=== PATIENT | male | born 1965 | race Caucasian/White ===

== ENCOUNTER 2018-04-03 19:39 | Inpatient (IN) ==
[2018-04-03] MEDS ORDERED: Naloxone 0.4 MG/ML INJ IVP PRN (21:58)
[2018-04-03] MEDS ORDERED: Acetaminophen 325 MG TABLET PO PRN (21:58)
[2018-04-03] MEDS ORDERED: Albuterol 2.5 MG/3 ML NEBULIZER IH PRN (22:06)
[2018-04-03] MEDS ORDERED: *HR* LORazepam 2 MG/ML VIAL IVP PRN (22:15)
--- NOTE | 2018-04-03 22:17 | Internal Med History&Physical ---
Date of Encounter: 04/03/18 Time of Encounter: 21:30 Internal Medicine - H&P: HPI Chief complaint: weka, lightheaded Admitted From: Hospital to Hospital Transfer Plans for Post Hospital Care: Home History of present illness: Mr. Savage is a 53 year old male who presents in transfer from [facility] Emergency Department for concerns of critical hyponatremia. He lives in a alf for treatment of his underlying psychiatric disorder -- bipolar disorder and schizoaffective disorder. He complained of having a headache and feeling lightheaded and dizzy earlier today. He was sent by the staff of the alf to ER where he was seen and evaluated. He had routine labs performed which revealed a critical sodium level of 112 and potassium level 3.1. He was given some IV fluids at the ER and oral potassium replacement. A request was then made to transfer patient to [facility] for further workup and care. Upon my assessment of the patient once he arrived, patient feels well without complaints. He denies any further throbbing headache or lightheadedness or dizziness. He appears to be euvolemic. He denies any profuse vomiting, diarrhea, or any excessive volume loss. He denies any excessive water intake or fluid intake. He denies any fevers, chills, or night sweats. Overall, he feels relatively well other than some generalized weakness. I reviewed old records and old labs. He tends to have a chronic hyponatremia with a serum sodium level running between 120-129. Based upon his history and medication review, I suspect the hyponatremia to be secondary to his oxcarbazepine. I called and reviewed his medication with pharmacy. I also worry about psychogenic polydipsia given his underlying psychiatric disorder. However, he denies any excessive fluid intake. Nonetheless, I will place him on a 2000 later per day fluid restriction, hold his oxcarbazepine, monitor sodium levels closely. Additionally, I called and spoke with nephrology tonight seeking assistance and consultation from them in the morning. Past Med Surg Social Fam HX - Past Medical History Attestation: Yes The following information was validated with the patient. Source: patient, old records reviewed, other ([facility] ER records) Medical history: hypertension, other Additional medical history: LUMBAR DDD, BACK FX WITH INTERNAL FIXATION, DIVERTICULITIS. Psychiatric history: anxiety, bipolar, schizophrenia - Past Surgical History Surgical History: orthopedic, other (spine surgery) Additional surgical history: BACK SURGERY - Social History Smoking Status: Current every day smoker Smokeless Tobacco Status: No Alcohol use: none Drug use: none Occupational status: unemployed Current living situation: Correction Activity Level: Independent ambulation Recent Out of Country Travel Within the Last 8 Weeks: No - Family History Mother Hx Family Cardiac Disorders: No Hx Family Endocrine Disorder: Yes (diabetes) Internal Medicine - H&P: Meds Albuterol Neb [Proventil Neb] 1 aerosol IH Q4H PRN 04/03/18 [History] Albuterol Sulfate [Ventolin Hfa] 2 puff IH BID 04/03/18 [History] Atorvastatin Calcium [Lipitor] 20 mg PO DAILY 04/03/18 [History] Cholecalciferol (Vitamin D3) [Vitamin D] 2 cap PO DAILY 04/03/18 [History] Docusate Sodium [Move It Along] 100 mg PO BID PRN 04/03/18 [History] Dutasteride [Avodart] 0.5 mg PO DAILY 04/03/18 [History] Fluticasone Propionate Nasal [Flonase] 2 inh IN DAILY 04/03/18 [History] Haloperidol 10 mg PO BID 04/03/18 [History] Ibuprofen [Ibu] 800 mg PO BID 04/03/18 [History] Lisinopril [Zestril] 20 mg PO DAILY 04/03/18 [History] Loratadine [Allergy Relief] 10 mg PO DAILY 04/03/18 [History] Melatonin [Melatin] 3 mg PO HS PRN 04/03/18 [History] Metoprolol Tartrate [Lopressor] 50 mg PO BID 04/03/18 [History] Multivits,Ca,Min/Iron/FA/Lycop [Centrum Men's Tablet] 1 tab PO DAILY 04/03/18 [ History] OXcarbazepine [Oxcarbazepine] 300 mg PO TID 04/03/18 [History] OXcarbazepine [Oxcarbazepine] 600 mg PO TID 04/03/18 [History] Omeprazole [PriLOSEC] 20 mg PO DAILY 04/03/18 [History] Promethazine [Phenergan] 25 mg PO Q6HR PRN 04/03/18 [History] Sodium Chloride/Sodium Bicarb [Nasa Mist Saline [place]] 1 spray IN BID 04/03/18 [ History] Tamsulosin HCl [Flomax] 0.4 mg PO DAILY 04/03/18 [History] Tramadol HCl [Ultram] 100 mg PO TID 04/03/18 [History] Valacyclovir HCl 1,000 mg PO AD PRN 04/03/18 [History] amLODIPine [Norvasc] 10 mg PO DAILY 04/03/18 [History] 3 Allergy/AdvReac Type Severity Reaction Status Date / Time No Known Allergies Allergy Verified 04/20/17 16:36 - Constitutional Constitutional: weakness, weight loss (intentional ), no anorexia, no chills, no fever(s), no night sweats - EENT Eyes: no blurry vision, no change in vision Ears: no ear pain, no tinnitus Nose, mouth and throat: no nasal congestion, no nasal discharge, no sinus pressure, no sore throat - Cardiovascular Cardiovascular ROS IM: lightheadedness, no chest pain, no dyspnea, no dyspnea on exertion, no edema, no palpitations, no paroxysmal nocturnal dyspnea, no syncope - Respiratory Respiratory: wheezing (rarely), no cough, no dyspnea, no hemoptysis, no chest congestion, no excessive phlegm production, no change in phlegm color - Gastrointestinal Gastrointestinal: heartburn, no abdominal pain, no diarrhea, no early satiety, no hematemesis, no hematochezia, no melena, no vomiting - Genitourinary Genitourinary ROS male: no dysuria, no flank pain, no hematuria - Musculoskeletal Musculoskeletal ROS IM: arthralgias, back pain - Integumentary Integumentary IM: no rash, no jaundice - Neurological Neurological ROS: dizziness, headache(s) (throbbing posterior headache today), no confusion, no focal weakness, no frequent falls, no paresthesias, no vertigo - Psychiatric Psychiatric: no anxiety, no depression - Endocrine Endocrine IM: no cold intolerance, no heat intolerance, no polydipsia, no polyphagia, no polyuria - Hematologic/Lymphatic Hematologic/Lymphatic: no lymphadenopathy - Allergic/Immunologic Allergic/Immunologic: wheezing, no GI upset with certain foods - Constitutional General appearance: Present: cooperative, A&O X 3, pleasant, no acute distress, answers questions appropriately Exam: appears euvolemic - Head Head exam: Present: atraumatic, normal inspection - Eye Eye exam: Present: EOMI, PERRL. Absent: scleral icterus Pupils: Present: normal accommodation - ENT ENT exam: Present: mucous membranes moist, normal exam, normal oropharynx - Neck Neck exam general surgery: Present: full ROM, supple, trachea midline. Absent: lymphadenopathy, tenderness, nuchal rigidity, thyromegaly - Respiratory Respiratory exam: Present: CTAB. Absent: chest wall tenderness, rales, respiratory distress, rhonchi, wheezes - Cardiovascular Cardiovascular exam: Present: bradycardia (HR 50's), RRR, +S1, +S2. Absent: diastolic murmur, systolic murmur - GI/Abdominal GI/Abdominal exam: Present: normal bowel sounds, soft. Absent: guarding, hepatomegaly, mass, rebound, splenomegaly, tenderness - Extremities Exam Extremities exam: Present: full ROM, normal capillary refill, warm, radial pulses palpable and symmetrical. Absent: calf tenderness, joint swelling, pedal edema, tenderness - Back Exam Back exam: Absent: CVA tenderness (L), CVA tenderness (R), tenderness - Neurological Exam Neurological exam: Present: alert, CN II-XII intact, oriented X3, no focal deficits, strengths equal and symetr throughout - Psychiatric Psychiatric exam: Present: normal affect, normal mood. Absent: agitated, anxious - Skin Skin exam: Present: dry, intact, warm Internal Med - H&P Results - Labs Labs: I reviewed his labs from [facility] and they include the following: WBC 4.1 Hemoglobin 14.6 Hematocrit 37.5 Platelet count 183 Sodium 112 Potassium 3.1 Chloride 77 Carbon Dioxide 26 BUN 7 Creatinine 0.7 Glucose 113 Calculated osmolality 233 EKG personally reviewed: Sinus bradycardia with no acute ST changes. - EKG Data -: EKG Interpreted by Myself EKG shows normal: sinus rhythm Rate: bradycardia - EKG Data Prior EKG available for review: no - Diagnostic Studies Chest x-ray Status: image reviewed by me (negative) - Assessment and plan (1) Hyponatremia Current Visit: Yes Status: Acute Assessment and plan: 1. Will repeat STAT chemistries and monitor levels Q4 hours. 2. Will place on regular diet and fluid restrict at 2000 ml fluid per day. 3. Patient denies any history of excessive fluid intake; however, given his underlying psychiatric history, need to monitor and restrict his fluid intake - - discussed with MAICO. 4. I called and spoke with Dr. Soria seeking advice and consultation. Will monitor frequent chemistries, order TSH, serum uric acid level, and ACTH stim test in the morning. Dr. Soria's advice and assistance much appreciated. 5. Will place in seizure precautions. (2) Headache Current Visit: Yes Status: Acute Assessment and plan: 1. Will order STAT Head CT given throbbing nature and critical hyponatremia. 2. Monitor closely. 3. Patient reports headache has resolved. Qualifiers: Headache type: unspecified Headache chronicity pattern: acute headache Intractability: not intractable Qualified Code(s): R51 - Headache (3) Psychiatric disorder Current Visit: Yes Status: Chronic Assessment and plan: 1. Hold Oxcarbezepine while monitoring sodium levels. 2. Will likely need psychiatry consult for assistance medication management. (4) Weakness Current Visit: Yes Status: Acute Assessment and plan: 1. Likely due to hyponatremia and hypokalemia. 2. Monitor electrolytes closely. 3. Will check TSH and ACTH stim test as above. (5) DVT prophylaxis Current Visit: Yes Status: Acute Assessment and plan: 1. Heparin SQ.
[2018-04-03 22:47] LABS: Alanine Aminotransferase 18 Units/L (7-52); Albumin 4.2 g/dL (3.5-5.7); Alkaline Phosphatase 77 Units/L (34-104); Aspartate Amino Transferase 20 Units/L (13-39); BUN/Creatinine Ratio 12 (6-26); Bilirubin,Total 0.5 mg/dL (0.3-1.0); Blood Urea Nitrogen 7 mg/dL (6-20); Calcium 8.8 mg/dL (8.6-10.3); Carbon Dioxide 30 mEq/L (23-29); Chloride 85 mEq/L (98-107); Globulin 2.1 g/dL (2.4-3.5); Glucose 81 mg/dL (70-105); Osmolality,Calculated 247 (280-300); Potassium 3.5 mEq/L (3.5-5.1); Sodium 120 mEq/L (136-145); Total Protein 6.3 g/dL (6.4-8.9); eGFR For Non-African Americans > 60 (> 60)
[2018-04-04 02:06] LABS: BUN/Creatinine Ratio 15 (6-26); Blood Urea Nitrogen 8 mg/dL (6-20); Calcium 8.4 mg/dL (8.6-10.3); Carbon Dioxide 26 mEq/L (23-29); Chloride 87 mEq/L (98-107); Glucose 94 mg/dL (70-105); Osmolality,Calculated 246 (280-300); Potassium 4.2 mEq/L (3.5-5.1); eGFR For Non-African Americans > 60 (> 60)
[2018-04-04] MEDS ORDERED: traMADol 50 MG TABLET PO PRN (04:15)
[2018-04-04] MEDS: *HR* Heparin 5,000 UNIT/ML VIAL SQ SCH ×2 (04:30→17:57)
[2018-04-04 05:17] LABS: Mean Platelet Volume 8.8 fL (9.4-12.4)
[2018-04-04 05:18] LABS: Eosinophils # 0.2 K/mcL (0.0-0.6); Hematocrit 39.9 % (37.5-50.1); Hemoglobin 14.5 g/dL (12.9-16.9); Mean Corpuscular HGB Conc 36.3 g/dL (31.6-35.5); Mean Corpuscular Hemoglobin 33.3 pg (28.0-33.3); Mean Corpuscular Volume 91.7 fL (83.0-100.0); Platelet Count 194 K/mcL (140-400); Red Blood Count 4.35 M/mcL (4.19-5.50); Red Cell Distribution Width 11.9 % (11.5-14.5)
[2018-04-04 05:38] LABS: BUN/Creatinine Ratio 15 (6-26); Blood Urea Nitrogen 8 mg/dL (6-20); Carbon Dioxide 27 mEq/L (23-29); Chloride 90 mEq/L (98-107); Glucose 103 mg/dL (70-105); Magnesium 1.7 mg/dL (1.6-2.6); Osmolality,Calculated 253 (280-300); Potassium 3.8 mEq/L (3.5-5.1); Sodium 122 mEq/L (136-145); Uric Acid 1.8 mg/dL (2.3-7.6); eGFR For Non-African Americans > 60 (> 60)
[2018-04-04 05:39] LABS: Troponin I < 0.03 ng/mL (< 0.04)
[2018-04-04 05:42] LABS: Lymphocytes # 0.9 K/mcL (0.6-4.6); Monocytes # 0.5 K/mcL (0.0-1.3); Platelet Estimate Normal (Normal); Reactive Lymphocytes Present (Not Present); Toxic Granulation Present (Not Present)
[2018-04-04 05:43] LABS: Acanthocytes 1+ (Not Present); Large Platelets Present (Not Present); Macrocytosis Present (Not Present); Poikilocytosis 2+ (Not Present)
[2018-04-04 05:52] LABS: Thyroid Stimulating Hormone 2.036 mcIU/mL (0.340-5.600)
[2018-04-04 06:29] LABS: Sodium 119 mEq/L (136-145)
[2018-04-04] MEDS ORDERED: Cosyntropin 250 MCG/2 ML VIAL IVP ONE (08:00)
[2018-04-04 09:42] LABS: BUN/Creatinine Ratio 11 (6-26); Blood Urea Nitrogen 7 mg/dL (6-20); Calcium 9.3 mg/dL (8.6-10.3); Carbon Dioxide 30 mEq/L (23-29); Chloride 92 mEq/L (98-107); Glucose 162 mg/dL (70-105); Osmolality,Calculated 264 (280-300); Potassium 3.7 mEq/L (3.5-5.1); Sodium 126 mEq/L (136-145); eGFR For Non-African Americans > 60 (> 60)
--- NOTE | 2018-04-04 10:26 | Internal Med Progress Note ---
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 HEENT: Moist oral mucosa, not cyanotic, sclerae is anicteric, conjunctiva is pink. Neuro: Alert and awake and oriented X3 ,speech is normal, no facial paralysis, no focal weakness. Chest: No bruising, no chest wall tenderness, equal chest movement bilaterally. Respiratory: CTAB Heart: S1, S2, regular rate and rhythm at this time. No murmurs. Abdomen:soft, non-tender, no palpably enlarged organs, bowel sounds present in all quadrants. 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 (5) DVT prophylaxis Current Visit: Yes Status: Acute Assessment and Plan: SQ heparin - Time Spent with Patient Total time spent is greater than 50% in coordination of care (as documented) at patient's floor/unit and/or counseling patient: Plan of Care Discussed with: patient Internal Medicine: Result - Labs CBC & Chem 7: 04/04/18 04:56 04/04/18 09:04 Labs: Short CBC 04/04/18 Range/Units 04:56 WBC 4.6 (4.3-11.1) K/mcL Hgb 14.5 (12.9-16.9) g/dL Hct 39.9 (37.5-50.1) % Plt Count 194 (140-400) K/mcL Neutrophils # 3.0 (1.6-8.9) K/mcL BMP 04/03/18 04/04/18 04/04/18 22:15 01:23 04:56 Sodium 120 L* 119 L* 122 L Potassium 3.5 4.2 3.8 Chloride 85 L 87 L 90 L Carbon Dioxide 30 H 26 27 BUN 7 8 8 Creatinine 0.57 L 0.52 L 0.53 L Glucose 81 94 103 Calcium 8.8 8.4 L 9.0 04/04/18 09:04 Sodium 126 L Potassium 3.7 Chloride 92 L Carbon Dioxide 30 H BUN 7 Creatinine 0.61 L Glucose 162 H Calcium 9.3 Cardiac Enzymes 04/03/18 04/04/18 Range/Units 22:15 04:56 Troponin I < 0.03 < 0.03 (< 0.04) ng/mL Liver Function 04/03/18 Range/Units 22:15 Total Bilirubin 0.5 (0.3-1.0) mg/dL AST 20 (13-39) Units/L ALT 18 (7-52) Units/L Alkaline Phosphatase 77 (34-104) Units/L Albumin 4.2 (3.5-5.7) g/dL - Impressions Impressions Head CT 04/03/18 21:58 IMPRESSION: No acute intracranial abnormality. D/ / Sheng Ribera / Sheng Ribera Interpreting Provider: Sheng Ribera Consult Discharge Plan - Plan Referrals: Flaquita Fung MD [Primary Care Provider] - (3) Headache Qualifiers: Qualified Code(s): R51 - Headache
[2018-04-04] MEDS: traMADol 50 MG TABLET PO PRN ×2 (12:17→19:18)
[2018-04-04] MEDS ORDERED: valACYclovir 500 MG TABLET PO PRN (13:50)
[2018-04-04] MEDS ORDERED: Melatonin 3 MG TABLET PO PRN (13:50)
--- NOTE | 2018-04-04 13:59 | Nephrology Consult Note ---
Date of Encounter: 04/04/18 Time of Encounter: 13:43 Assessment and Plan (1) Hyponatremia Current Visit: Yes Status: Acute Hyponatremia workup initiated. Initial was 112 is now 122. Salt tabs ordered. Regular diet to liberalize salt. Awaiting Serum Osmo results. Urine osmo 129 and urine Na is 15. (2) Headache Current Visit: Yes Status: Acute Per primary, Qualifiers: Headache type: unspecified Headache chronicity pattern: acute headache Intractability: not intractable Qualified Code(s): R51 - Headache (3) Psychiatric disorder Current Visit: Yes Status: Chronic Per primary. History of Present Illness - Reason for Consult Consult date: 04/04/18 hyponatremia - Chief Complaint weakness - History of Present Illness Mr. Britt is a 52 year old male admitted with hyponatremia. Appears chronic. Initial NA was 112, has now corrected to 126. Pt states he is overall feeling much bettter. PMH: anxiety, bipolar, schizophrenia. Pt denies CP and SOB. Denies nausea/vomiting/diarrhea. Per home mediations patient is taking 900 of Oxcarbazepine TID, which is known to cause hyponatremia. Serum and urine osmo and urine sodium all received without results. TSH, uric acid and cortisol noted. Sodium chloride tabls added. Pt lives in a nursing home but is wanting his own apartment. However the patient did admit that he might have trouble managing his medications on his own. Is a current every day smoker. Denies etoh or illicit drug use. Past Med Surg Social Fam HX - Past Medical History Medical history: hypertension, other Additional medical history: LUMBAR DDD, BACK FX WITH INTERNAL FIXATION, DIVERTICULITIS. Psychiatric history: anxiety, bipolar, schizophrenia - Past Surgical History Surgical History: orthopedic, other (spine surgery) Additional surgical history: BACK SURGERY - Social History Smoking Status: Current every day smoker Smokeless Tobacco Status: No Alcohol use: none Drug use: none - Family History Mother Hx Family Cardiac Disorders: No Hx Family Endocrine Disorder: Yes (diabetes) Medications and Allergies Albuterol Neb [Proventil Neb] 1 aerosol IH Q4H PRN 04/03/18 [History] Albuterol Sulfate [Ventolin Hfa] 2 puff IH BID 04/03/18 [History] Atorvastatin Calcium [Lipitor] 20 mg PO DAILY 04/03/18 [History] Cholecalciferol (Vitamin D3) [Vitamin D] 2 cap PO DAILY 04/03/18 [History] Docusate Sodium [Move It Along] 100 mg PO BID PRN 04/03/18 [History] Dutasteride [Avodart] 0.5 mg PO DAILY 04/03/18 [History] Fluticasone Propionate Nasal [Flonase] 2 inh IN DAILY 04/03/18 [History] Haloperidol 10 mg PO BID 04/03/18 [History] Ibuprofen [Ibu] 800 mg PO BID 04/03/18 [History] Lisinopril [Zestril] 20 mg PO DAILY 04/03/18 [History] Loratadine [Allergy Relief] 10 mg PO DAILY 04/03/18 [History] Melatonin [Melatin] 3 mg PO HS PRN 04/03/18 [History] Metoprolol Tartrate [Lopressor] 50 mg PO BID 04/03/18 [History] Multivits,Ca,Min/Iron/FA/Lycop [Centrum Men's Tablet] 1 tab PO DAILY 04/03/18 [ History] OXcarbazepine [Oxcarbazepine] 300 mg PO TID 04/03/18 [History] OXcarbazepine [Oxcarbazepine] 600 mg PO TID 04/03/18 [History] Omeprazole [PriLOSEC] 20 mg PO DAILY 04/03/18 [History] Promethazine [Phenergan] 25 mg PO Q6HR PRN 04/03/18 [History] Sodium Chloride/Sodium Bicarb [Nasa Mist Saline [place]] 1 spray IN BID 04/03/18 [ History] Tamsulosin HCl [Flomax] 0.4 mg PO DAILY 04/03/18 [History] Tramadol HCl [Ultram] 100 mg PO TID 04/03/18 [History] Valacyclovir HCl [Valtrex] 1,000 mg PO Q12H PRN 04/03/18 [History] amLODIPine [Norvasc] 10 mg PO DAILY 04/03/18 [History] Haloperidol [Haldol] 5 mg PO BID 04/04/18 [History] Montelukast [Singulair] 10 mg PO DAILY 04/04/18 [History] Trihexyphenidyl [Artane] 1 mg PO BID 04/04/18 [History] 3 Allergy/AdvReac Type Severity Reaction Status Date / Time No Known Allergies Allergy Verified 04/20/17 16:36 Review of Systems Constitutional: no chills, no fatigue, no fever(s) Nose, mouth and throat: dizziness Cardiovascular: no chest pain, no dyspnea Gastrointestinal: no diarrhea, no nausea, no vomiting Exam - Vital Signs Vital signs: Initial Vital Signs Temp Pulse Resp BP Pulse Ox 97.7 F 56 16 140/77 93 04/03/18 21:50 04/03/18 21:50 04/03/18 21:50 04/03/18 21:50 04/03/18 21:50 Vital Signs - Last 8 Hours Temp Pulse Resp BP Pulse Ox 04/04/18 11:26 98.8 F 61 18 155/95 94 04/04/18 07:29 98.1 F 57 18 147/84 95 Intake and Output 04/03/18 04/04/18 04/04/18 23:59 07:59 15:59 Intake Total 600 / 600 Output Total 1250 / 1250 520 / 520 Balance -1250 / -1250 80 / 80 Intake: Oral 600 / 600 Output: Urine 1250 / 1250 520 / 520 Other: Meal Lunch Percent of Meal Consumed 100% Weight 96.6 kg 97 kg Patient Weight 04/04/18 23:59 Weight 97 kg - General Appearance General appearance: well-developed, well-nourished EENT: ATNC, hearing intact, vision intact Neck: supple Respiratory: clear Cardiology: no edema, normal S1, normal S2 Gastrointestinal: normoactive bowel sounds, no tenderness, no guarding Integumentary: no rash, warm and dry Neurologic: alert and oriented x3 Psychiatric: mood/affect appropriate, cooperative Results - Lab Results 04/04/18 04:56 04/04/18 09:04 Most recent lab results Calcium 9.3 mg/dL (8.6-10.3) 04/04/18 09:04 Magnesium 1.7 mg/dL (1.6-2.6) 04/04/18 04:56 Consult Discharge Plan - Plan Referrals: Flaquita Fung MD [Primary Care Provider] -
[2018-04-04 14:05] LABS: BUN/Creatinine Ratio 13 (6-26); Blood Urea Nitrogen 8 mg/dL (6-20); Calcium 9.1 mg/dL (8.6-10.3); Carbon Dioxide 26 mEq/L (23-29); Chloride 91 mEq/L (98-107); Glucose 262 mg/dL (70-105); Osmolality,Calculated 265 (280-300); Potassium 3.7 mEq/L (3.5-5.1); Sodium 124 mEq/L (136-145); eGFR For Non-African Americans > 60 (> 60)
[2018-04-04] MEDS: Ibuprofen 800 MG TABLET PO SCH (15:41)
[2018-04-04] MEDS: amLODIPine 5 MG TABLET PO SCH (15:42)
[2018-04-04] MEDS: Finasteride 5 MG TABLET PO SCH (15:42)
[2018-04-04] MEDS: Cholecalciferol (D-3) 1,000 UNIT TABLET PO SCH (15:42)
[2018-04-04] MEDS: Lisinopril 20 MG TABLET PO SCH (15:42)
[2018-04-04] MEDS: OXcarbazepine 150 MG TABLET PO SCH ×4 (15:43→20:24)
[2018-04-04] MEDS: Saline Nasal Spray 44 ML BOTTLE NS SCH ×2 (15:43→20:25)
[2018-04-04 17:15] LABS: BUN/Creatinine Ratio 14 (6-26); Blood Urea Nitrogen 8 mg/dL (6-20); Calcium 9.2 mg/dL (8.6-10.3); Carbon Dioxide 30 mEq/L (23-29); Chloride 93 mEq/L (98-107); Glucose 88 mg/dL (70-105); Osmolality,Calculated 260 (280-300); Potassium 3.8 mEq/L (3.5-5.1); Sodium 126 mEq/L (136-145); eGFR For Non-African Americans > 60 (> 60)
[2018-04-04 21:23] LABS: BUN/Creatinine Ratio 15 (6-26); Blood Urea Nitrogen 8 mg/dL (6-20); Calcium 9.1 mg/dL (8.6-10.3); Carbon Dioxide 24 mEq/L (23-29); Chloride 94 mEq/L (98-107); Glucose 113 mg/dL (70-105); Osmolality,Calculated 259 (280-300); Potassium 3.6 mEq/L (3.5-5.1); Sodium 125 mEq/L (136-145); eGFR For Non-African Americans > 60 (> 60)
[2018-04-05 02:07] LABS: Basophils % 0.4 %; Eosinophils # 0.2 K/mcL (0.0-0.6); Eosinophils % 3.1 %; Hematocrit 40.6 % (37.5-50.1); Hemoglobin 14.7 g/dL (12.9-16.9); Immature Granulocytes % 0.2 % (0-4); Lymphocytes # 1.1 K/mcL (0.6-4.6); Lymphocytes % 20.5 %; Mean Corpuscular HGB Conc 36.2 g/dL (31.6-35.5); Mean Corpuscular Hemoglobin 33.7 pg (28.0-33.3); Mean Corpuscular Volume 93.1 fL (83.0-100.0); Mean Platelet Volume 8.9 fL (9.4-12.4); Monocytes # 0.9 K/mcL (0.0-1.3); Monocytes % 16.9 %; Neutrophils # 3.2 K/mcL (1.6-8.9); Platelet Count 207 K/mcL (140-400); Red Blood Count 4.36 M/mcL (4.19-5.50); Red Cell Distribution Width 12.4 % (11.5-14.5); Segmented Neutrophils % 58.9 %
[2018-04-05 02:16] LABS: BUN/Creatinine Ratio 13 (6-26); Blood Urea Nitrogen 6 mg/dL (6-20); Carbon Dioxide 25 mEq/L (23-29); Chloride 94 mEq/L (98-107); Glucose 97 mg/dL (70-105); Osmolality,Calculated 260 (280-300); Potassium 3.5 mEq/L (3.5-5.1); Sodium 126 mEq/L (136-145); eGFR For Non-African Americans > 60 (> 60)
[2018-04-05 05:41] LABS: BUN/Creatinine Ratio 12 (6-26); Blood Urea Nitrogen 6 mg/dL (6-20); Calcium 9.2 mg/dL (8.6-10.3); Carbon Dioxide 26 mEq/L (23-29); Chloride 94 mEq/L (98-107); Glucose 102 mg/dL (70-105); Osmolality,Calculated 260 (280-300); Potassium 3.7 mEq/L (3.5-5.1); Sodium 126 mEq/L (136-145); eGFR For Non-African Americans > 60 (> 60)
[2018-04-05] MEDS: *HR* Heparin 5,000 UNIT/ML VIAL SQ SCH ×2 (06:20→17:30)
[2018-04-05] MEDS: amLODIPine 5 MG TABLET PO SCH (08:00)
[2018-04-05] MEDS: traMADol 50 MG TABLET PO PRN ×3 (08:00→20:00)
[2018-04-05] MEDS: Loratadine 10 MG TABLET PO SCH (08:00)
[2018-04-05] MEDS: Lisinopril 20 MG TABLET PO SCH (08:00)
[2018-04-05] MEDS: OXcarbazepine 150 MG TABLET PO SCH ×6 (08:00→22:01)
[2018-04-05] MEDS: Multivit/Ca/Min/Fe/FA 1 TAB TABLET PO SCH (08:01)
[2018-04-05] MEDS: Cholecalciferol (D-3) 1,000 UNIT TABLET PO SCH (08:01)
[2018-04-05] MEDS: Ibuprofen 800 MG TABLET PO SCH ×2 (08:01→17:30)
[2018-04-05] MEDS: Finasteride 5 MG TABLET PO SCH (08:01)
[2018-04-05] MEDS: Fluticasone Propionate Nasal 50 MCG/SPRAY BOTTLE NS SCH (08:02)
[2018-04-05] MEDS: Saline Nasal Spray 44 ML BOTTLE NS SCH ×2 (08:02→20:04)
[2018-04-05 09:04] LABS: BUN/Creatinine Ratio 8 (6-26); Blood Urea Nitrogen 5 mg/dL (6-20); Calcium 9.8 mg/dL (8.6-10.3); Carbon Dioxide 29 mEq/L (23-29); Chloride 92 mEq/L (98-107); Glucose 111 mg/dL (70-105); Osmolality,Calculated 260 (280-300); Potassium 3.8 mEq/L (3.5-5.1); Sodium 126 mEq/L (136-145); eGFR For Non-African Americans > 60 (> 60)
[2018-04-05 13:17] LABS: BUN/Creatinine Ratio 14 (6-26); Blood Urea Nitrogen 8 mg/dL (6-20); Calcium 9.4 mg/dL (8.6-10.3); Carbon Dioxide 23 mEq/L (23-29); Chloride 96 mEq/L (98-107); Glucose 155 mg/dL (70-105); Osmolality,Calculated 265 (280-300); Potassium 3.7 mEq/L (3.5-5.1); Sodium 127 mEq/L (136-145); eGFR For Non-African Americans > 60 (> 60)
--- NOTE | 2018-04-05 13:56 | Internal Med Progress Note ---
Hospitalist Progress Note - Encounter Date of Encounter: 04/05/18 Time of Encounter: 13:56 - Subjective Interval History: No acute events. No complaints. - Exam Vitals: Temp Pulse Resp BP Pulse Ox 98.1 F 56 18 146/79 98 04/05/18 11:59 04/05/18 11:59 04/05/18 11:59 04/05/18 11:59 04/05/18 11:59 Exam: Gen.: AAOx3, cooperative with exam, pleasant. HEENT: Moist oral mucosa, not cyanotic, sclerae is anicteric, conjunctiva is pink. Neuro: Alert and awake and oriented X3 ,speech is normal, no facial paralysis, no focal weakness. Chest: No bruising, no chest wall tenderness, equal chest movement bilaterally. Respiratory: CTAB Heart: S1, S2, regular rate and rhythm at this time. No murmurs. Abdomen:soft, non-tender, no palpably enlarged organs, bowel sounds present in all quadrants. Extremities: no pedal edema - Assessment and Plan (1) Weakness Current Visit: Yes Status: Inactive Assessment and Plan: TSH and ACTH stim test WNL Due to hyponatremia Improving. 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 Resume home psych meds Renal eval pending Continue to monitor Nephrology following, recommendations appreciated. (3) Headache Current Visit: Yes Status: Acute Assessment and Plan: Resolved per patient Head CT no acute intracranial anomaly No neuro deficits, no neuro symptoms Continue home meds (4) Psychiatric disorder Current Visit: Yes Status: Chronic Assessment and Plan: Resume meds, consult psych prn. (5) DVT prophylaxis Current Visit: Yes Status: Acute Assessment and Plan: SQ heparin - Time Spent with Patient Total time spent is greater than 50% in coordination of care (as documented) at patient's floor/unit and/or counseling patient: Internal Medicine: Result - Labs CBC & Chem 7: 04/05/18 01:41 04/05/18 12:44 Labs: Short CBC 04/05/18 Range/Units 01:41 WBC 5.5 (4.3-11.1) K/mcL Hgb 14.7 (12.9-16.9) g/dL Hct 40.6 (37.5-50.1) % Plt Count 207 (140-400) K/mcL Neutrophils # 3.2 (1.6-8.9) K/mcL BMP 04/04/18 04/04/18 04/04/18 13:18 16:41 20:52 Sodium 124 L 126 L 125 L Potassium 3.7 3.8 3.6 Chloride 91 L 93 L 94 L Carbon Dioxide 26 30 H 24 BUN 8 8 8 Creatinine 0.62 L 0.57 L 0.55 L Glucose 262 H 88 113 H Calcium 9.1 9.2 9.1 04/05/18 04/05/18 04/05/18 01:41 04:59 08:21 Sodium 126 L 126 L 126 L Potassium 3.5 3.7 3.8 Chloride 94 L 94 L 92 L Carbon Dioxide 25 26 29 BUN 6 6 5 L Creatinine 0.46 L 0.52 L 0.60 L Glucose 97 102 111 H Calcium 9.0 9.2 9.8 04/05/18 12:44 Sodium 127 L Potassium 3.7 Chloride 96 L Carbon Dioxide 23 BUN 8 Creatinine 0.58 L Glucose 155 H Calcium 9.4 Consult Discharge Plan - Plan Referrals: Emmy Lloyd, [employer] [Advanced Practice Nurse] - 04/13/18 4:00 pm (3) Headache Qualifiers: Headache type: unspecified Headache chronicity pattern: acute headache Intractability: not intractable Qualified Code(s): R51 - Headache
--- NOTE | 2018-04-05 14:33 | Nephrology Progress Note ---
Date of Encounter: 04/05/18 Time of Encounter: 14:30 - Assessment and Plan (1) Hyponatremia Current Visit: Yes Status: Acute Hyponatremia workup initiated. Initial was 112 is now 126. Salt tabs ordered. Regular diet to liberalize salt. Continue 1.5 Liter fluid restriction and salt tabs on d/c. BMP in 7 days f/u in 4 weeks. Anticipate a d/c home tomorrow. (2) Headache Current Visit: Yes Status: Acute Per primary, Qualifiers: Headache type: unspecified Headache chronicity pattern: acute headache Intractability: not intractable Qualified Code(s): R51 - Headache (3) Psychiatric disorder Current Visit: Yes Status: Chronic Per primary. Subjective Principal diagnosis: hyponatremia Interval history: Pt seen and examined, doing well. Denies CP/SOB. Denies dizziness/palpitations. Objective - Vital Signs Vital signs: Vital Signs Temp Pulse Resp BP Pulse Ox 04/05/18 11:59 98.1 F 56 18 146/79 98 04/05/18 11:50 98 04/05/18 07:10 97.8 F 53 18 170/80 97 04/05/18 03:42 98.0 F 49 18 147/82 96 04/05/18 03:37 97.6 F 52 18 167/90 95 04/04/18 23:45 97.6 F 53 18 167/90 95 04/04/18 20:10 98.0 F 55 17 148/85 94 04/04/18 20:01 56 04/04/18 19:33 18 96 04/04/18 16:13 98.7 F 56 18 166/92 96 Intake and Output 04/04/18 04/05/18 04/05/18 23:59 07:59 15:59 Intake Total 960 / 960 600 / 600 840 / 840 Output Total 1350 / 1350 Balance 960 / 960 -750 / -750 840 / 840 Intake: Oral 960 / 960 600 / 600 840 / 840 Output: Urine 1350 / 1350 Other: Meal Dinner Lunch Percent of Meal Consumed 100% Weight 96.5 kg Patient Weight 04/05/18 23:59 Weight 96.5 kg - General Appearance General appearance: Present: well-developed, well-nourished EENT: Present: ATNC, hearing intact, vision intact Respiratory: Present: clear Cardiology: Present: no edema, normal S1, normal S2 Gastrointestinal: Present: normoactive bowel sounds, no tenderness, no guarding Integumentary: Present: no rash, warm and dry Neurologic: Present: alert and oriented x3 Psychiatric: Present: mood/affect appropriate, cooperative - Lab 04/05/18 01:41 04/05/18 12:44 Most recent lab results Calcium 9.4 mg/dL (8.6-10.3) 04/05/18 12:44 Magnesium 1.7 mg/dL (1.6-2.6) 04/04/18 04:56 Urine Sodium 15.3 mEq/L 04/03/18 13:20 Consult Discharge Plan - Plan Referrals: Emmy Lloyd, [employer]STANCE ADDICTION COORDINATOR [Advanced Practice Nurse] - 04/13/18 4:00 pm
[2018-04-05] MEDS: BENZOCAINE/MENTHOL 1 LOZENGE (BAG OF 6) MM PRN (22:02)
[2018-04-06] MEDS: BENZOCAINE/MENTHOL 1 LOZENGE (BAG OF 6) MM PRN (03:02)
[2018-04-06] MEDS: traMADol 50 MG TABLET PO PRN (04:06)
[2018-04-06 05:47] LABS: BUN/Creatinine Ratio 15 (6-26); Blood Urea Nitrogen 8 mg/dL (6-20); Calcium 9.3 mg/dL (8.6-10.3); Carbon Dioxide 25 mEq/L (23-29); Chloride 95 mEq/L (98-107); Glucose 100 mg/dL (70-105); Osmolality,Calculated 262 (280-300); Potassium 3.5 mEq/L (3.5-5.1); Sodium 127 mEq/L (136-145); eGFR For Non-African Americans > 60 (> 60)
[2018-04-06] MEDS: *HR* Heparin 5,000 UNIT/ML VIAL SQ SCH (06:19)
[2018-04-06 07:16] VITALS: BP 174/89
[2018-04-06] MEDS: OXcarbazepine 150 MG TABLET PO SCH ×2 (07:45)
[2018-04-06] MEDS: Finasteride 5 MG TABLET PO SCH (07:45)
[2018-04-06] MEDS: Multivit/Ca/Min/Fe/FA 1 TAB TABLET PO SCH (07:46)
[2018-04-06] MEDS: Lisinopril 20 MG TABLET PO SCH (07:46)
[2018-04-06] MEDS: amLODIPine 5 MG TABLET PO SCH (07:46)
[2018-04-06] MEDS: Cholecalciferol (D-3) 1,000 UNIT TABLET PO SCH (07:46)
[2018-04-06] MEDS: Loratadine 10 MG TABLET PO SCH (07:47)
[2018-04-06] MEDS: Ibuprofen 800 MG TABLET PO SCH (07:47)
[2018-04-06] MEDS: Fluticasone Propionate Nasal 50 MCG/SPRAY BOTTLE NS SCH (07:48)
[2018-04-06] MEDS: Saline Nasal Spray 44 ML BOTTLE NS SCH (07:48)
--- NOTE | 2018-04-06 09:56 | Discharge Summary ---
- NOTES TO OUTPATIENT PROVIDER Notes to Outpatient Provider: Follow-up BMP in 7 days. Monitor if compliant with fluid restriction and salt tabs. Orders not resulted at time of discharge: Pending orders 04/04/18 06:00 ECG 12 lead ECG [ECG] AM 0600 Date of Encounter: 04/06/18 Time of Encounter: 09:51 - Discharge Diagnosis (1) Hyponatremia Priority: Primary Status: Acute (2) Weakness Priority: Secondary Status: Inactive (3) Headache Priority: Secondary Status: Acute Qualifiers: Headache type: unspecified Headache chronicity pattern: acute headache Intractability: not intractable Qualified Code(s): R51 - Headache (4) Psychiatric disorder Priority: Secondary Status: Chronic (5) DVT prophylaxis Priority: Secondary Status: Acute Hospital course: Mr. Savage is a 53 year old male who presents in transfer from [facility] Emergency Department for concerns of critical hyponatremia. He lives in a intermediate for treatment of bipolar disorder and schizoaffective disorder. He complained of having a headache and feeling lightheaded and dizziness. He was sent by the staff of the intermediate to ER where he was seen and evaluated. He had routine labs performed which revealed a critical sodium level of 112 and potassium level 3.1. He was given some IV fluids at the ER and oral potassium replacement. A request was then made to transfer patient to [facility] for further workup and care. Patient was euvolemic on arrival. Patient has known chronic hyonatremia running 120-129 range. Patient was monitored closely on step down unit. Nephrology was consulted. He was placed on a fluid restricted diet. 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 He was also started on salt tablets. His sodium gradually improved. He was stable for discharge with a 1.5 L fluid restriction, salt tabs, and repeat BMP in 7 days. - Time Spent with Patient Total time spent providing and/or coordinating discharge services: - Discharge Medications Prescriptions: Sodium Chloride [Sodium Chloride Tab] 1 gm PO BID #60 tablet Home Medications: Albuterol Neb [Proventil Neb] 1 aerosol IH Q4H PRN 04/03/18 [History] Albuterol Sulfate [Ventolin Hfa] 2 puff IH BID 04/03/18 [History] Atorvastatin Calcium [Lipitor] 20 mg PO DAILY 04/03/18 [History] Cholecalciferol (Vitamin D3) [Vitamin D3] 2 cap PO DAILY 04/03/18 [History] Docusate Sodium [Move It Along] 100 mg PO BID PRN 04/03/18 [History] Dutasteride [Avodart] 0.5 mg PO DAILY 04/03/18 [History] Fluticasone Propionate Nasal [Flonase] 2 inh IN DAILY 04/03/18 [History] Haloperidol 10 mg PO BID 04/03/18 [History] Lisinopril [Zestril] 20 mg PO DAILY 04/03/18 [History] Loratadine [Allergy Relief] 10 mg PO DAILY 04/03/18 [History] Melatonin [Melatin] 3 mg PO HS PRN 04/03/18 [History] Metoprolol Tartrate [Lopressor] 50 mg PO BID 04/03/18 [History] Multivits,Ca,Min/Iron/FA/Lycop [Centrum Men's Tablet] 1 tab PO DAILY 04/03/18 [ History] OXcarbazepine [Oxcarbazepine] 300 mg PO TID 04/03/18 [History] OXcarbazepine [Oxcarbazepine] 600 mg PO TID 04/03/18 [History] Omeprazole [PriLOSEC] 20 mg PO DAILY 04/03/18 [History] Promethazine [Phenergan] 25 mg PO Q6HR PRN 04/03/18 [History] Sodium Chloride/Sodium Bicarb [Nasa Mist Saline Disputanta] 1 spray IN BID 04/03/18 [ History] Tamsulosin HCl [Flomax] 0.4 mg PO DAILY 04/03/18 [History] Tramadol HCl [Ultram] 100 mg PO TID 04/03/18 [History] Valacyclovir HCl [Valtrex] 1,000 mg PO Q12H PRN 04/03/18 [History] amLODIPine [Norvasc] 10 mg PO DAILY 04/03/18 [History] Haloperidol [Haldol] 5 mg PO BID 04/04/18 [History] Montelukast [Singulair] 10 mg PO DAILY 04/04/18 [History] Trihexyphenidyl [Artane] 1 mg PO BID 04/04/18 [History] Sodium Chloride [Sodium Chloride Tab] 1 gm PO BID #60 tablet 04/06/18 [Rx] Allergies/Adverse Reactions: 3 Allergy/AdvReac Type Severity Reaction Status Date / Time No Known Allergies Allergy Verified 04/20/17 16:36 Date of admission: 04/03/18 21:59 Primary care physician: Flaquita Fung Consults: 04/03/18 22:02 Consult to Physician [CONS] Routine Consulting Provider: Loco Soria Reason for Consult: hyponatremia Time Notified: 22:02 Call Completed: Yes Discharging clinician: Ras Silva - Constitutional Vitals: Temp Pulse Resp BP Pulse Ox 97.4 F L 77 18 174/89 98 04/06/18 07:30 04/06/18 07:30 04/06/18 07:30 04/06/18 07:30 04/06/18 07:30 General appearance: Present: cooperative, A&O X 3, pleasant, no acute distress, answers questions appropriately Exam: NAD - Head Head exam: Present: atraumatic, normocephalic - Eye Eye exam: Present: PERRL, conjuntiva pink, sclera anicteric Pupils: Present: PERRL - Neck Neck exam general surgery: Present: supple, trachea midline. Absent: lymphadenopathy - Respiratory Respiratory exam: Present: CTAB. Absent: accessory muscle use, rales, rhonchi, wheezes - Cardiovascular Cardiovascular exam: Present: RRR, +S1, +S2. Absent: diastolic murmur, gallop, rubs, systolic murmur - GI/Abdominal GI/Abdominal exam: Present: normal bowel sounds, soft, no peritoneal signs. Absent: distended, tenderness - Extremities Exam Extremities exam: Present: warm, radial pulses palpable and symmetrical. Absent : calf tenderness, cyanotic, pedal edema - Neurological Exam Neurological exam: Present: CN II-XII intact, oriented X3, no focal deficits. Absent: pronater drift, facial droop, speech deficit - Skin Skin exam: Present: dry, intact - Patient Status Disposition: Home, Self-Care Condition: Fair Functional capacity at discharge: independent ambulation Overall status at discharge: patient is back to baseline - Discharge Instructions Follow Up With: Emmy Lloyd CNP [Advanced Practice Nurse] - 04/13/18 4:00 pm - Diet and Activity Activity: increase activity as tolerated Diet: advance to your usual diet
== END 2018-04-06 13:03 | disposition home or self-care (01) | DRG 645 ==
LOC: 2NNU → SUATTDRO 21:59
PROVIDERS: ADMIT Family Medicine; ATTEND Internal Medicine